=== PATIENT | female | born 1980 | race Caucasian/White ===

== ENCOUNTER 2016-10-21 06:48 | Emergency (ER) | payer OTHER ==
[2016-10-21 08:09] VITALS: BP 111/81
== END 2016-10-21 08:09 | disposition home or self-care (01) ==
LOC: ED 06:48
DX: M77.51 Other enthesopathy of right foot and ankle (principal)
CPT/HCPCS: Q0092

== ENCOUNTER 2017-01-20 23:04 | Emergency (ER) | payer OTHER ==
[~2017-01-20] VITALS: Ht 152.4 cm; Wt 100.0 kg
[2017-01-21 01:28] VITALS: BP 129/70
== END 2017-01-21 01:28 | disposition home or self-care (01) ==
LOC: ED 23:04
DX: J02.8 Acute pharyngitis due to other specified organisms (principal)

== ENCOUNTER 2017-06-20 15:28 | Emergency (ER) | payer OTHER ==
[~2017-06-20] VITALS: Ht 162.6 cm; Wt 97.1 kg
[2017-06-20 15:36] VITALS: Ht 162.6 cm; Wt 97.1 kg
[2017-06-20 16:23] LABS: BASOPHIL % 0.5 % (0-2); PLATELET COUNT 292 x10^3mcL (130-400); RED CELL DISTRIBUTION WIDTH 13.4 % (11.5-14.5)
[2017-06-20 16:32] LABS: CALCIUM 8.7 mg/dL (8.5-10.1); CARBON DIOXIDE 25.1 mmol/L (21-32); CHLORIDE SERUM 103 mmol/L (98-107); CREATININE SERUM 0.7 mg/dL (0.6-1.0); GFR1 > 60 mL/min; GLUCOSE SERUM 91 mg/dL (74-106); POTASSIUM SERUM 3.9 mmol/L (3.5-5.1); SODIUM SERUM 137 mmol/L (136-145)
[2017-06-20 17:54] VITALS: BP 126/68
== END 2017-06-20 17:54 | disposition home or self-care (01) ==
LOC: ED 15:28
PROVIDERS: Emergency Medicine
DX: N93.8 Other specified abnormal uterine and vaginal bleeding (principal); R51 Headache; R03.0 Elevated blood-pressure reading, without diagnosis of hypertension; Z88.0 Allergy status to penicillin
CPT/HCPCS: J0780; J1885

== ENCOUNTER 2018-05-11 12:02 | Emergency (ER) | payer OTHER ==
[~2018-05-11] VITALS: Ht 162.6 cm; Wt 98.2 kg
[2018-05-11 13:55] VITALS: BP 113/71
== END 2018-05-11 13:55 | disposition home or self-care (01) ==
LOC: ED 12:02
DX: L03.032 Cellulitis of left toe (principal); Z88.0 Allergy status to penicillin
CPT/HCPCS: 82962

== ENCOUNTER 2018-08-10 22:48 | Emergency (ER) | payer OTHER ==
[~2018-08-10] VITALS: Ht 162.6 cm; Wt 105.2 kg
[2018-08-10 23:08] VITALS: Ht 162.6 cm; Wt 105.2 kg
[2018-08-10 23:30] LABS: BASOPHIL % 0.5 % (0-2); PLATELET COUNT 306 x10^3mcL (130-400); RED CELL DISTRIBUTION WIDTH 13.2 % (11.5-14.5)
[2018-08-10 23:36] LABS: CALCIUM 8.6 mg/dL (8.5-10.1); CARBON DIOXIDE 30.7 mmol/L (21-32); CHLORIDE SERUM 101 mmol/L (98-107); CREATININE SERUM 0.8 mg/dL (0.6-1.0); GFR1 > 60 mL/min; GLUCOSE SERUM 102 mg/dL (74-106); POTASSIUM SERUM 3.7 mmol/L (3.5-5.1); SODIUM SERUM 140 mmol/L (136-145)
[2018-08-10 23:40] LABS: ALBUMIN 3.7 g/dL (3.4-5.0); ALKALINE PHOSPHATASE 69 U/L (46-116); ALT/SGPT 35 U/L (14-59); AST/SGOT 55 U/L (15-37); BILIRUBIN TOTAL 0.3 mg/dL (0.20-1.00); LIPASE 162 IU/L (73-393); TOTAL PROTEIN, SERUM 8.1 g/dL (6.4-8.2)
[2018-08-11 01:11] VITALS: BP 114/71
== END 2018-08-11 01:11 | disposition home or self-care (01) ==
LOC: ED 22:48
PROVIDERS: Emergency Medicine
DX: K81.9 Cholecystitis, unspecified (principal); Z88.0 Allergy status to penicillin; Z98.890 Other specified postprocedural states; Z98.51 Tubal ligation status
CPT/HCPCS: 36415; Q0092; Q0162

== ENCOUNTER 2018-08-11 02:05 | Inpatient (IN) | payer OTHER ==
[~2018-08-11] VITALS: Ht 162.6 cm; Wt 104.3 kg
[2018-08-11 02:17] VITALS: Ht 162.6 cm; Wt 104.3 kg
--- NOTE | 2018-08-11 02:39 | NUR ---
PT WAS DISCHARGED WITHOUT RESULTS OF ULTRASOUND DUE TO A MISCOMMUNICATION. PT CALLED TO RETURN FOR RESULTS OF ULTRASOUND. PT HERE FOR C/O INTERMITTENT EPIGASTRIC PAIN THAT COMES AND GOES AND SHE STATES IS NOT MADE BETTER OR WORSE BY ANYTHING. PT BREATHING EQUAL AND UNLABORED. NO DISTRESS AT THIS TIME. PT CONNECTED TO PLETH [facility]. DR ROBLEDO AT BEDSIDE FOR RESULTS OF ULTRASOUND AND DISCUSSING POC WITH PATIENT
--- NOTE | 2018-08-11 02:45 | NUR ---
LAB AT BEDSIDE FOR BLOOD CULTURE AND LABS
--- NOTE | 2018-08-11 03:36 | NUR ---
PT AMBULATING TO RESTROOM. STEADY GAIT VISIBLE
--- NOTE | 2018-08-11 04:18 | NUR ---
PATIENT ARRIVED ONTO THE UNIT VIA [facility] FROM ED ACCOMPANIED BY ED NURSE AND BOYFRIEND. CC OF INTERMITTENT EPIGASTRIC AND RUQ PAIN WORSENING SINCE APRIL WHERE PAIN IS UNBEARABLE. DX WITH CHOLECYSTITIS. A/OX4. C/O OF HEADACHE AT THIS TIME. DENIES DIZZINESS. PULSES PALPABLE. NO EDEMA NOTED. LUNG SOUNDS CTAB. ON ROOM AIR. BREATHING EVEN AND UNLABORED. NO SOB OR RESP DISTRESS NOTED. ABD ROUND/SOFT. NO DISTENTION. DENIES ABD PAIN AT THIS TIME. PAIN UPON PALPATION IN EPIGASTRIC REGION AND RUQ NOTED. BOWEL SOUNDS ACTIVE X4. AMBULATORY. VOIDS FREELY. IV TO THE LAC, 22G. CURRENTLY INFUSING NS AT 100 AND FLAGYL. PATENT AND INTACT. NO REDNESS OR SWELLING NOTED. ORIENTED PATIENT TO THE ROOM, CALL LIGHT, AND NPO STATUS. INSTRUCTED PATIENT TO CALL FOR ASSISTANCE. COMFORT AND SAFETY MEASURES MAINTAINED. BED IS LOCKED AND IN THE LOWEST POSITION. SIDE RIAL UP X2. WILL CONTINUE TO MONITOR.
[2018-08-11 04:33] LABS: MAGNESIUM 2.2 mg/dL (1.8-2.4); PHOSPHOROUS 3.7 mg/dL (2.5-4.9)
[2018-08-11 04:54] VITALS: BP 111/62
--- NOTE | 2018-08-11 05:20 | NUR ---
C/O OF 11/19 HEADACHE. PRN TYLENOL WAS ADMINISTERED PRESCRIBED. WILL CONTINUE TO MONITOR AND REASSESS PAIN LEVEL.
--- NOTE | 2018-08-11 06:25 | NUR ---
NO ACUTE CHANGES NOTED. ON ROOM AIR. BREATHING EVEN. NO DISTRESS NOTED. C/O OF PAIN, HEADACHE, X1. MEDICATED WITH PRN TYLENOL WITH GOOD RELIEF. DENIES ABD PAIN AT THIS TIME. NO ADVERSE REACTIONS TO ABX THEARPY FROM ER NOTED. IV TO THE LAC INFUSING WELL. NO REDNESS OR SWELLING NOTED. PATENT AND INTACT. NONPROD COUGH NOTED AT THIS TIME. COMFORT AND SAFETY MEASURES MAINTAINED. CALL LIGHT IS WITHIN REACH. SIDE RAILS UP X2. BED IN THE LOWEST POSITION. WILL ENDORSE CARE TO DAY SHIFT RN.
--- NOTE | 2018-08-11 07:30 | NUR ---
PT ENDORSE TO ME THIS MORNINIG. LAYING IN BED RESTING/ BY HIS SIDE. AA/O X4 BREATHING EVEN AND UNLABORED ON RA/ NO ACUTE RESP DISTRESS OR SOB NOTED. REMAINS NPO. MEDSURG/ DENIES ANY CP OR PRESSURE. BOWEL SOUNDS ACTIVE IN ALL FOUR QUADS, LAST BM 08/10 FORMED PER PT. VOIDS FREELY/ CURRENTLY ON PERIOD. GEN WEAKNESS/ AMB. DENIES ANY ABD PAIN AT THIS TIME. IV TO THE LAC INTACT AND PATENT/ INFUSING AT 100ML/HR. NO RENDESS OR SWELLING NOTED. CALL LIGHT IN REACH. BED IN LOW POSITION. WILL CONTINUE PLAN OF CARE.
[2018-08-11 08:26] VITALS: BP 90/52
[2018-08-11 08:43] LABS: BASOPHIL % 0.4 % (0-2); PLATELET COUNT 288 x10^3mcL (130-400); RED CELL DISTRIBUTION WIDTH 13.1 % (11.5-14.5)
[2018-08-11 08:44] LABS: CALCIUM 8.9 mg/dL (8.5-10.1); CARBON DIOXIDE 27.5 mmol/L (21-32); CHLORIDE SERUM 101 mmol/L (98-107); CREATININE SERUM 0.8 mg/dL (0.6-1.0); GFR1 > 60 mL/min; GLUCOSE SERUM 88 mg/dL (74-106); POTASSIUM SERUM 3.8 mmol/L (3.5-5.1); SODIUM SERUM 137 mmol/L (136-145)
[2018-08-11 09:16] LABS: microscopic required? YES; urine erythrocyte 2+ (NEGATIVE)
--- NOTE | 2018-08-11 09:43 | NUR ---
PT TAKEN FOR LAB DORI. BREATHING EVEN AND UNLABORED ON RA. DENIES ANY DISCOMFORT OR CP/ ABD PAIN. WILL CONTINUE TO MONITOR WHEN PT RETURNS.
[2018-08-11 12:22] VITALS: BP 111/72
--- NOTE | 2018-08-11 12:35 | NUR ---
PT BACK FROM SURGY. BREATHING EVEN AND UNLABORED ON RA. DENIES ANY ABD PAIN OR DISCOMFORT. VS 111/72, RESP 19, HR 67, SATING AT 97 5 RA. IS C/O FEELING NAUSEOUS./ MEDICATED PER EMAR. WILL CONTIINUE TO MONITOR.
--- NOTE | 2018-08-11 14:22 | NUR ---
PT C/O OF ABD PAIN 01/20, MEDICATED PER EMAR.
[2018-08-11 16:13] VITALS: BP 107/59
--- NOTE | 2018-08-11 19:00 | NUR ---
NO ACUTE CHANGES AT THIS TIME. NO ACUTE RESP DISTRESS. TOLERATED 100% OF DINNER, NO N/V NOTED. DENIES ANY ABD PAIN AT THIS TIME. WILL ENDORSE TO INCOMING RN.
--- NOTE | 2018-08-11 20:00 | NUR ---
RECEIVED PT IN BED WITH FAMILY AT BEDSIDE. PT IS AWAKE, ALERT, ORIENTED X4. S/P LAP DORI WITH X4 INCISIONS WITH DERMABOND, CDI. BS HYPO ACTIVE IN ALL FOUR QUADS. PT ENOURAGED TO AMBULATE TO PASS GAS. NO BM AT THIS TIME. VOIDING FREELY. IV TO LAC INFUSING NS AT 50ML/HR. SHIFT ASSESSMENT COMPLETED CALL LIGHT WITHIN REACH. WILL CONTINUE TO MONITOR CLOSELY.
[2018-08-11 21:25] VITALS: BP 119/60
--- NOTE | 2018-08-12 00:40 | NUR ---
PT IS SLEEPING IN INTERVALS. NO DISTRESS NOTED. IVF ONGOING. CALL LIGHT WITHIN REACH. BED IS IN LOWEST POSITION. WILL CONTINUE TO MONTIOR CLOSELY.
[2018-08-12 05:17] VITALS: BP 112/67
--- NOTE | 2018-08-12 06:05 | NUR ---
AM CARE PROVIDED, ALL NEEDS TENDED TO. ZOSYN INFUSING WELL AT THIS TIME. WILL CONTINUE TO MONITOR CLOSELY.
[2018-08-12 06:21] LABS: BASOPHIL % 0.1 % (0-2); PLATELET COUNT 272 x10^3mcL (130-400); RED CELL DISTRIBUTION WIDTH 13.1 % (11.5-14.5)
[2018-08-12 06:41] LABS: CARBON DIOXIDE 29.2 mmol/L (21-32); CHLORIDE SERUM 104 mmol/L (98-107); CREATININE SERUM 0.7 mg/dL (0.6-1.0); GFR1 > 60 mL/min; GLUCOSE SERUM 110 mg/dL (74-106); SODIUM SERUM 139 mmol/L (136-145)
--- NOTE | 2018-08-12 07:30 | NUR ---
PT ENDORSE TO ME THIS MORNING. AA/O X4 BREATHING EVEN AND UNLABORED ON RA. NO ACUTE RESP DISTRESS OR SOB NOTED. MEDSURG. DENIES ANY CP OR PRESSURE. IS C/O ABD PAIN 01/20, REFUSING NORCO OR MORPHINE, AWARE. BOWEL SOUNDS HYPERACTIVE, STATED IS PASSING GAS. AMB TO BATHROOM. X4 INCISIONS CDIL. IV TO THE LAC INTACT AND PATENT/ NO REDNESS OR SWELLING NOTED. WILL CONTINUE TO MONITOR.
--- NOTE | 2018-08-12 07:47 | NUR ---
C/O ABD PAIN 01/20, MEDICATED PER EMAR.
[2018-08-12 07:59] VITALS: BP 124/62
[2018-08-12 08:12] VITALS: BP 115/61
[2018-08-12 12:17] VITALS: BP 105/57
--- NOTE | 2018-08-12 14:25 | NUR ---
PT TOLERATED 100% OF FULLLIQ LUNCH WITH OUT N/V. WILL CONTINUE TO MONITOR
[2018-08-12 16:01] VITALS: BP 140/71
--- NOTE | 2018-08-12 16:52 | NUR ---
PT C/O ABD PAIN 5/10 MEDICATED PER EMAR.
--- NOTE | 2018-08-12 17:58 | NUR ---
PHYSICAL THERAPY NOTE PATIENT DEMO IND ON BED MOB, TRANSFER AND GAIT 50 FIT WITH NO AD. GOAL MET. DISCHARGED FROM PHYSICAL THERAPY. END TO NSG FOR MOB NEEDS
--- NOTE | 2018-08-12 18:19 | NUR ---
NO ACUTE CHANGES AT THIS TIME. NO ACUTE RESP DISTRESS OR SOB NOTED. CONTINUES TO AMB TO BATHROOM FOR VOID/ PASSING GAS. ABD INCISIONS CDI/ NO NEW DRAINAGE NOTED. IV TO THE LAC INTACT AND PATENT/ INFUSING 50ML/HR, NO REDNESS OR SWELLING NOTED. FAMILY AT BEDSIDE. MEDICATED PER EMAR FOR ABD PAIN. WILL ENDORSE TO INCOMING RN.
--- NOTE | 2018-08-12 20:41 | NUR ---
NOTED PT AMBULATING ON THE HALLWAY WITH FAMILY , GAIT STEADY , PT DENY PAIN . PIV INTACT INFUSIGN WELL WILL CON'T TO MONITOR PT . .
[2018-08-12 21:07] VITALS: BP 116/78
--- NOTE | 2018-08-12 23:58 | NUR ---
NOTED ORDER FROM DR MARTINES TO GIVE X2 DOSSES OF ZOSYN POST OP . PT CON'T TO HAVE HIGH WBC DR LOPEZ AWARE OK TO CONTINUE ZOSYN FOR NOW DUE TO ELEVATED WBC.
--- NOTE | 2018-08-13 01:49 | NUR ---
PT'S IN BED WITH EYES CLOSED SNORING, PIV INTACT INFUSING WELL .
--- NOTE | 2018-08-13 05:15 | NUR ---
I HAVE REVIEWED THE DATA COLLECTION BY CAROLYNN (NAME):SHAQ KILGORE ENTERED ON (DATE/TIME):08/12 I CONCUR WITH THE DATA AND ANY EXCEPTIONS OR COMMENTS ARE LISTED BELOW:
[2018-08-13 06:00] VITALS: BP 107/68
--- NOTE | 2018-08-13 06:12 | NUR ---
NO CHANGES OF CONDITION NOTED, PT'S IN BED WITH EYES CLOSED , PIV PATENT INFUSING WELL .
[2018-08-13 06:23] LABS: CALCIUM 7.8 mg/dL (8.5-10.1); CARBON DIOXIDE 27.9 mmol/L (21-32); CHLORIDE SERUM 107 mmol/L (98-107); CREATININE SERUM 0.8 mg/dL (0.6-1.0); GFR1 > 60 mL/min; GLUCOSE SERUM 91 mg/dL (74-106); POTASSIUM SERUM 3.6 mmol/L (3.5-5.1); SODIUM SERUM 141 mmol/L (136-145)
[2018-08-13 06:25] LABS: BASOPHIL % 0.4 % (0-2); PLATELET COUNT 240 x10^3mcL (130-400); RED CELL DISTRIBUTION WIDTH 13.5 % (11.5-14.5)
--- NOTE | 2018-08-13 07:15 | NUR ---
ASSUMED CARE OF PATIENT. ALERT AND ORIENTED X4. NO COMPLAINTS OF PAIN OR DISCOMFORT. S1 AND S2 SOUNDS NOTED. PULSES PALPABLE, NO EDEMA NOTED, UTILIZING SCD. LUNG SOUNDS CLEAR BILATERALLY, NO ADVENTITIOUS BREATH SOUNDS. BOWEL SOUNDS PRESENT IN ALL 4 QUADRANTS. VOIDING FREELY. NO WEAKNESS NOTED, AMBULATING INDEPENDENTLY. SKIN APPEARS CLEAN, DRY INTACT. 4X INCISIONS TO AMDOMEN WITH DERMABOND APPEAR CLEAN AND INTACT WITH NO SIGNS OR SYMPTOMS OF INFECTION. IV TO LAC INFUSING AND PATENT. VSS. NONSKID SOCKS IN PLACE, BED LOCKED AND IN LOWEST POSITION.
[2018-08-13 08:57] VITALS: BP 92/57
[2018-08-13 09:30] VITALS: BP 115/67
--- NOTE | 2018-08-13 11:15 | NUR ---
PATIENT RESTING IN ROOM. ADL CARE COMPLETED INDEPENDENTLY. AMBULATING INDEPENDNETLY. NO ACUTE COMPLAINTS AT THIS TIME. STATES ABDOMINAL INCISIONS ARE SORE BUT TOLERABLE.
[2018-08-13] MEDS ORDERED: IBUPROFEN400 MG PO (15:03)
[2018-08-13 15:11] VITALS: BP 115/67
--- NOTE | 2018-08-13 16:02 | NUR ---
DISCHARGE INSTRUCTION PROVIDED. COMPLETE IV CATHETER REMOVED PRIOR TO DISCHARGE. PATIENT LEFT UNIT VIA WHEELCHAIR WITH SISTER. NO COMPLAINTS OF PAIN OR DISCOMFORT. NO APPARENT DISTRESS NOTED.
== END 2018-08-13 16:02 | disposition home or self-care (01) | DRG 263 ==
LOC: ED 02:05 → MU 03:28
PROVIDERS: Surgery; ADMIT Internal Medicine
PROC: 0FT44ZZ Resection of Gallbladder, Percutaneous Endoscopic Approach (ICD-10-PCS; principal; 2018-08-11 10:00)
DX: K80.62 Calculus of gallbladder and bile duct with acute cholecystitis without obstruction (principal); N17.0 Acute kidney failure with tubular necrosis; E66.01 Morbid (severe) obesity due to excess calories; E66.9 Obesity, unspecified; Z68.39 Body mass index [BMI] 39.0-39.9, adult; Z88.0 Allergy status to penicillin; Z98.51 Tubal ligation status; Z71.3 Dietary counseling and surveillance
CPT/HCPCS: 83880; 94150; 97116-GP; 97530-GP; J1170; J1885; J2175; J2250; J2270; J2405; J2543; J3010; J3490; J7030; Q0092

== ENCOUNTER 2019-03-01 16:00 | Emergency (ER) | payer OTHER ==
[~2019-03-01] VITALS: Ht 162.6 cm; Wt 107.5 kg
[~2019-03-01 16:00] MED LIST: IBUPROFEN400 MG PO
[2019-03-01 16:03] VITALS: Ht 162.6 cm; Wt 107.5 kg
[2019-03-01 16:39] VITALS: BP 107/68
== END 2019-03-01 16:39 | disposition home or self-care (01) ==
LOC: ED 16:00
DX: L73.1 Pseudofolliculitis barbae (principal); L03.116 Cellulitis of left lower limb; E66.01 Morbid (severe) obesity due to excess calories; Z68.41 Body mass index [BMI] 40.0-44.9, adult; Z88.0 Allergy status to penicillin; Z90.49 Acquired absence of other specified parts of digestive tract
CPT/HCPCS: 82962

== ENCOUNTER 2019-03-03 09:10 | Emergency (ER) | payer OTHER ==
[~2019-03-03] VITALS: Ht 162.6 cm; Wt 106.6 kg
[2019-03-03 09:12] VITALS: BP 107/52; Ht 162.6 cm; Wt 106.6 kg
== END 2019-03-03 10:56 | disposition home or self-care (01) ==
LOC: ED 09:10
DX: L03.116 Cellulitis of left lower limb (principal); Z88.0 Allergy status to penicillin